=== PATIENT | male | born 1950 | race Caucasian/White ===

== ENCOUNTER 2020-11-09 10:37 | Outpatient (CLI) | payer MEDICARE, SELFPAY ==
--- NOTE | 2020-11-09 10:45 | ECG_ITS ---
Measurements Intervals [place] Rate: 64 P: 50 VA: 180 QRS: -10 QRSD: 102 T: 30 QT: 380 QTc: 394 Interpretive Statements SINUS RHYTHM DELAYED PRECORDIAL R/S TRANSITION BASELINE ARTIFACT- I, II, AVR BORDERLINE ECG Electronically Signed On 11-09-2020 11:07:28 CDT by Desmond Arias D.O.
== END 2020-11-09 10:38 | disposition home or self-care (01) ==
PROVIDERS: PCP Internal Medicine; Visit Provider Urology
DX: Z01.818 Encounter for other preprocedural examination (principal); I10 Essential (primary) hypertension
CPT/HCPCS: 93005

== ENCOUNTER 2020-11-15 02:16 | Day surgery (SDC) | payer MEDICARE, SELFPAY ==
[2020-11-06 10:26] VITALS: BMI 24.3
--- NOTE | 2020-11-09 07:46 | PM.HPGS ---
History of Present Illness History of Present Illness Consent: Risks, benefits, and alternatives have been discussed and questions answered. Patient agrees to proceed with procedure. Chief complaint: BPH Narrative: Ramiro Hagen is a 70 year old male With longstanding obstructive an irritable voiding symptoms who is been evaluated by an outside urologist for approximately 10 years. He had responded to combination therapy for BPH including finasteride and tamsulosin but recently experience regression with increased urinary frequency urgency and nocturia. He had failed a trial of DDAVP. Evaluation in our office with urodynamics revealed a pattern consistent with probable outlet obstruction although was a bit difficult to interpret. Was certainly notable that he had a diminished average and peak urinary flow and a significantly high postvoid residual (345cc). After a careful discussion of therapeutic options he elected for a Urolift. he is aware of alternative therapeutic options including additional trials of medication, TURP, GreenLight laser prostatectomy in Nov. He is aware the risk of this procedure including, but not limited to, adverse cardiopulmonary events, postoperative bleeding, persistent irritable and obstructive voiding symptoms. Review of Systems Cardiovascular: Cardiovascular: Denies chest pain, Denies lightheadedness, Denies palpitations and Denies dyspnea Respiratory: Respiratory: Denies dyspnea Gastrointestinal: Gastrointestinal: Denies diarrhea, Denies nausea and Denies vomiting Genitourinary: Genitourinary: Denies hematuria and Denies dysuria Endocrine: Endocrine: Denies palpitations [facility] Social History Social History Smoking packs per day: 1 Smoking cigarettes per day: 20.0 Years smoked: 15 Smoking pack-years: 15.00 Smoking status: Former smoker Tobacco type: cigarettes Smoking end date: 03/09/79 Alcohol intake: current Drinks per week: 1 Spiritual care concerns: No Meds Home Medications and Allergies Home Medications Medication Instructions Recorded Confirmed Type aspirin [Adult Low Dose Aspirin] 81 mg PO HS 11/06/20 11/06/20 History atorvastatin 20 mg PO HS 11/06/20 11/06/20 History finasteride 5 mg PO HS 11/06/20 11/06/20 History lisinopril 2.5 mg PO HS 11/06/20 11/06/20 History melatonin 3 mg PO HS PRN 11/06/20 11/06/20 History eeilzjaetzfs-dkmijvoq-yarcmj 1 tablet PO DAILY 11/06/20 11/06/20 History [Centrum Silver] oxybutynin chloride 10 mg PO DAILY 11/06/20 11/06/20 History tamsulosin 0.4 mg PO HS 11/06/20 11/06/20 History Allergies Allergy/AdvReac Type Severity Reaction Status Date / Time No Known Allergies Allergy Verified 11/06/20 09:33 Exam Const: General: no acute distress Resp: Effort & Inspection: normal respiratory effort GI: Inspection: non-distended GI Palp: No abdominal tenderness and No Guarding due to palpation present (GI) Auscultation: normal bowel sounds Assessment and Plan Assessment and plan (1) BPH loc w urin obs/LUTS: Code(s): N40.1 - Benign prostatic hyperplasia with lower urinary tract symptoms Status: Acute Assessment and Plan: UroLift
--- NOTE | 2020-11-15 06:35 | P.PNAN_ITS ---
Anes - Initial Pre Proc Eval Procedure: Operation Date: 11/15/20 08:15 Proposed Procedures p Urolift - Dre Ayala MD Date/Time: 11/15/20 06:35 Surgeon: Dre Ayala MD Pre Op Diagnosis: BPH Patient Data Age: 70 Gender: M Height: 1.75 m Weight: 74.85 kg Allergies Allergy/AdvReac Type Severity Reaction Status Date / Time No Known Allergies Allergy Verified 11/06/20 09:33 Home Medications Medication Instructions Recorded Confirmed Type aspirin [Adult Low Dose Aspirin] 81 mg PO HS 11/06/20 11/06/20 History atorvastatin 20 mg PO HS 11/06/20 11/06/20 History finasteride 5 mg PO HS 11/06/20 11/06/20 History lisinopril 2.5 mg PO HS 11/06/20 11/06/20 History melatonin 3 mg PO HS PRN 11/06/20 11/06/20 History gnmfvaequwer-oaomllge-jnximz 1 tablet PO DAILY 11/06/20 11/06/20 History [Centrum Silver] oxybutynin chloride 10 mg PO DAILY 11/06/20 11/06/20 History tamsulosin 0.4 mg PO HS 11/06/20 11/06/20 History Patient hx anesthesia problems: none Family hx anesthesia problems: none [facility] Past Medical History Medical History (Updated 11/15/20 @ 06:35 by Stef Martinez MD) HTN (hypertension) Hyperlipidemia Social History Social History Smoking packs per day: 1 Smoking cigarettes per day: 20.0 Years smoked: 15 Smoking pack-years: 15.00 Smoking status: Former smoker Tobacco type: cigarettes Smoking end date: 03/09/79 Alcohol intake: current Drinks per week: 1 Living arrangements: with family Spiritual care concerns: No Anes - Eval Final PreProcedure Day of Procedure 11/15/20 06:35 Patient weight: normal Heart: regular rate and rhythm Lungs: clear to auscultation Airway: Mallampati scale class II Neurological: alert and oriented Last oral intake: >/= 8 hours ASA classification: II Emergent: no Anesthetic plan: proceed Anesthesia type and monitoring: general GIVS and standard monitoring Informed Consent: The patient's anesthetic plan and its attendant risks and benefits were discussed with the patient/family/POA. Questions were solicited and answers provided to the satisfaction of the patient/family/POA.
[2020-11-15] MEDS: LACTATED RINGERS 1,000 ML 30 ML IV CONT (07:10)
--- NOTE | 2020-11-15 07:12 | WPDHPUPDATE1 ---
History and Physical Update Update Date/Time: 11/15/20 07:12 History and Physical has been reviewed, including an updated exam of the patient. There are NO changes in the patient's condition. Risks, benefits, and alternatives have been discussed and questions answered. Patient agrees to proceed with procedure.
[2020-11-15 08:01] VITALS: BP 141/71; PULSE 65; RESP 14; TEMP 36.4; O2SAT 99; BMI 24.6
[2020-11-15] MEDS: ceFAZolin 2 GM/D5W 50 ML 2 GM/50 ML BAG IVPB (08:01)
[2020-11-15] MEDS: LIDOCAINE HCL 2% GEL UROJET 10 ML PKG MUCOUS MEM (08:10)
--- NOTE | 2020-11-15 08:23 | W.PM.PROC2 ---
Procedure Note - Detailed Date of Procedure 11/15/20 Pre-op Diagnosis BPH Post-op Diagnosis same Procedure Performed UroLift Surgeon Dre Ayala MD Anesthesia general Description of Procedure The patient was prepped and draped in a routine fashion after the uneventful induction of a general LMA anesthetic. A 20F cystoscope was inserted into the bladder. The cystoscopy bridge was replaced with a UroLift delivery device. The first treatment site was the patient's right side approximately 1.5cm distal to the bladder neck. The distal tip of the delivery device was then angled laterally approximately 20 degrees at this position to compress the lateral lobe. The trigger was pulled, thereby deploying a needle containing the implant through the prostate. The needle was then retracted, allowing one end of the implant to be delivered to the capsular surface of the prostate. The implant was then tensioned to assure capsular seating and removal of slack monofilament. The device was then angled back toward midline and slowly advanced proximally (typically 3 to 4 mm) until cystoscopic verification of the monofilament being centered in the delivery bay. The urethral end piece was then affixed to the monofilament thereby tailoring the size of the implant. Excess filament was then severed. The delivery device was then re-advanced into the bladder. The delivery device was then replaced with cystoscope and bridge and the implant location and opening effect was confirmed cystoscopically. The same procedure was then repeated on the left side, and two additional implants were delivered just proximal to the verumontanum, again one on right and one on left side of the prostate, following the same technique. Therefore, a total of 4 implants were delivered. A final cystoscopy was conducted first to inspect the location and state of each implant and second, to confirm the presence of a continuous anterior channel was present through the prostatic urethra with irrigation flow turned off. The bladder was then filled with 150 cc irrigation fluid to assist the patient in void trial after the procedure, and all instruments were removed. At this point the cystoscope was removed and the patient was taken to the PACU in good condition. Drains No Packing No Pathology none sent Complications No immediate complications Condition stable Disposition PACU
[2020-11-15 08:28] VITALS: BP 78/48; PULSE 60; RESP 18; O2SAT 94
[2020-11-15 08:40] VITALS: BP 98/50; PULSE 65; RESP 18; O2SAT 96
[2020-11-15 09:10] VITALS: BP 148/80; PULSE 52; RESP 20
--- NOTE | 2020-11-15 09:40 | SUR.PHASEII ---
[id number] - dr. lilly in room talking with pt
== END 2020-11-15 09:47 | disposition home or self-care (01) ==
PROVIDERS: PCP Internal Medicine; Visit Provider Urology
PROC: 0T7D8DZ Dilation of Urethra with Intraluminal Device, Via Natural or Artificial Opening Endoscopic (ICD-10-PCS; CPT 52441; principal; 2020-11-15 08:15)
DX: N40.1 Benign prostatic hyperplasia with lower urinary tract symptoms (principal); N13.8 Other obstructive and reflux uropathy; I10 Essential (primary) hypertension; E78.5 Hyperlipidemia, unspecified; Z87.891 Personal history of nicotine dependence; Z79.82 Long term (current) use of aspirin
CPT/HCPCS: C9740; A9270; J0690; J2704; J3010; J7120; L8699

== ENCOUNTER 2023-06-24 15:14 | Outpatient (CLI) | payer MEDICARE, SELFPAY ==
--- NOTE | ~2023-06-24 | MR_ITS ---
EXAMINATION: MR pelvis wo/w con DATE: 06/24/2023 16:05 INDICATION: Right groin pain. TECHNIQUE: Magnetic resonance imaging (MRI) of the pelvis was performed without and with 15 mL MultiH ance intravenous contrast. COMPARISON: None. FINDINGS: There are no dilated loops of bowel. There are no pathologically enlarged lymph nodes. There is no fr ee intraperitoneal fluid. There is mild osteoarthritis of the hips. There is mild lumbar spondylosis. The gluteus minimus and gluteus medius tendons are normal. There is mild tendinopathy of the left hua mstring origin. The iliopsoas tendons are normal. The musculature is normal. IMPRESSION: 1. Mild osteoarthritis of the hips. Reviewed, dictated and finalized at location E.
== END 2023-06-24 15:15 ==
LOC: MICIMG 15:15
PROVIDERS: PCP Internal Medicine; Visit Provider Internal Medicine
DX: R10.31 Right lower quadrant pain (principal); M16.0 Bilateral primary osteoarthritis of hip
CPT/HCPCS: 72197; A9577